=== PATIENT | female | born 1940 | race African-American/Black ===

== ENCOUNTER 2018-04-05 09:08 | Emergency (ER) | payer MEDICARE, OTHER ==
[~2018-04-05] VITALS: Ht 167.6 cm; Wt 85.0 kg
[~2018-04-05 09:08] MED LIST: HYDR12.54 PO; LISINOP PO; NORCO; PLAVIX; RANI150T7 PO
[2018-04-05] MEDS: MORPHINE SULFATE 4 MG/ML CPJ (NOT FOR IM USE) IV STA ×2 (09:10→09:26)
[2018-04-05] MEDS: ONDANSETRON HCL 4MG/2ML INJ IV STA ×3 (09:10→10:06)
[2018-04-05 10:07] LABS: BASOPHILS % 0.7 % (0.0-2.0); EOSINOPHILS % 0.9 % (0.0-5.0); HEMOGLOBIN. 12.5 g/dL (12.0-16.0); LYMPHOCYTES % 18.1 % (20.0-50.0); MEAN CORPUSCULAR HEMOGLOBIN 27.7 pg (28.0-32.0); MEAN CORPUSCULAR VOLUME 84.5 fL (81.0-99.0); MEAN PLATELET VOLUME 6.9 fl (7.4-10.4); MONOCYTES % 8.6 % (2.0-8.0); NEUTROPHILS % 71.7 % (40.0-76.0); PLATELET 289 x1000/uL (130-400); RED CELL DISTRIBUTION WIDTH 15.4 % (11.6-14.6)
[2018-04-05 10:16] LABS: CHLORIDE 105 mEq/L (98-107)
[2018-04-05 11:30] VITALS: BP 133/61
[2018-04-05] MEDS ORDERED: IOHEXOL-300 100 ML BOTTLE ONE (12:19)
== END 2018-04-05 11:51 | disposition home or self-care (01) ==
LOC: ER 09:36 → CANBEDREQ 12:50
DX: R10.0 Acute abdomen (principal); G89.18 Other acute postprocedural pain; R03.0 Elevated blood-pressure reading, without diagnosis of hypertension; I44.0 Atrioventricular block, first degree; R00.1 Bradycardia, unspecified; Z88.6 Allergy status to analgesic agent
CPT/HCPCS: 36415; 71045; 74177; 80053; 84484; 85025; 85610; 93005; 96374; 96375; 99285; J2270; J2405; Q9967